=== PATIENT | female | born 1965 | race African-American/Black ===

== ENCOUNTER 2020-10-14 11:40 | Outpatient (CLI) | payer BC | END 2020-10-14 23:59 | disposition home or self-care (01) | LOC: RAD 11:40 | DX: M47.816 Spondylosis without myelopathy or radiculopathy, lumbar region (principal); M51.87 Other intervertebral disc disorders, lumbosacral region | CPT/HCPCS: 72110 ==

== ENCOUNTER 2020-11-04 14:03 | Outpatient (CLI) | payer BC | END 2020-11-04 23:59 | disposition home or self-care (01) | LOC: US 14:03 | DX: N85.4 Malposition of uterus (principal); N95.0 Postmenopausal bleeding; D25.9 Leiomyoma of uterus, unspecified ==